=== PATIENT | male | born 1950 | race Caucasian/White ===

== ENCOUNTER 2023-03-20 06:50 | Day surgery (SDC) | payer OTHER ==
[2023-03-20] MEDS ORDERED: LIDOCAINE 1% MPF 5 ML VIAL ONE (07:13)
[2023-03-20] MEDS ORDERED: Ringers Lactate 1,000 ML IV ONE (07:13)
[2023-03-20] MEDS ORDERED: propofoL 200 MG/20 ML VIAL IV ONE (07:13)
[2023-03-20 09:06] VITALS: BP 131/75; TEMP 97; O2SAT 100
== END 2023-03-20 09:05 | disposition home or self-care (01) ==
LOC: OR 06:50
PROVIDERS: ATTEND Surgery
PROC: 0DJD8ZZ Inspection of Lower Intestinal Tract, Via Natural or Artificial Opening Endoscopic (ICD-10-PCS; principal; 2023-03-20 08:00)
DX: Z12.11 Encounter for screening for malignant neoplasm of colon (principal); K57.30 Diverticulosis of large intestine without perforation or abscess without bleeding; K64.8 Other hemorrhoids
CPT/HCPCS: J2704; J2001; J7120; G0121

== ENCOUNTER 2025-06-01 13:15 | Day surgery (SDC) | payer OTHER ==
[2025-05-27 11:06] LABS: Absolute Lymphocytes (CBC) 2.4 K/uL (0.7-4.9); Hematocrit 41.3 % (39.6-49.0); Hemoglobin 14.1 g/dL (13.6-17.9); MCH 31.4 pg (27.0-35.0); MCHC 34.2 g/dL (32.0-36.0); MCV 91.6 fL (80-100); MPV 8.9 fL (7.6-11.3); Nucleated RBC Absolute Count 0.0 (0-0); Nucleated Red Blood Cells % 0.0 % (0-0); RBC Red Blood Cell Count 4.51 M/uL (4.33-5.43); White Blood Count 8.70 thou/uL (4.3-10.9)
[2025-05-27 11:19] LABS: PT Prothrombin Time 14.8 SECONDS (10-13.0); PTT, Activated Partial Thromb 31.5 SECONDS (27.2-37.4); Protime INR 1.32
[2025-05-27 11:20] LABS: Anion Gap 9.3 mEq/L (5.0-15.0); BUN Blood Urea Nitrogen 19.0 mg/dL (7-18); Glucose Level 94.0 mg/dL (74-106); Potassium 4.3 mEq/L (3.5-5.1)
--- NOTE | 2025-05-27 11:36 | RAD REPORT ---
Procedure: Chest Pa And Lat (2 Views) HISTORY: Preop for cardiac catheterization COMPARISON: 2009 FINDINGS: The lungs appear clear of acute infiltrate. Calcified granuloma right lung. Post surgical changes involve the chest. No significant pleural effusion noted. The heart is normal size. IMPRESSION: No acute abnormality is displayed.
[2025-06-01] MEDS ORDERED: NA CHLORIDE 0.9% 500 ML ONE (13:43)
[2025-06-01] MEDS ORDERED: NALOXONE 0.4 MG/ML VIAL ONE (14:57)
[2025-06-01] MEDS ORDERED: ATROPINE SULF 1 MG/10 ML SYR IV ONE (14:57)
[2025-06-01] MEDS ORDERED: HEPA 1000U/500MLS 2,000 UNIT/1,000 ML BAG IV ONE (14:57)
[2025-06-01] MEDS ORDERED: LIDOCAINE 1% 20 ML MDV ONE (14:57)
[2025-06-01] MEDS ORDERED: FLUMAZENIL 0.1 MG/ML (5 mL VIAL) IV ONE (14:57)
[2025-06-01] MEDS ORDERED: MIDAZOLAM HCL 2 MG/2 ML INJ ONE (15:04)
[2025-06-01] MEDS ORDERED: FENTANYL CITR 100 MCG/2 ML ONE (15:04)
[2025-06-01 17:50] VITALS: O2SAT 100
[2025-06-01 17:52] VITALS: BP 136/80
--- NOTE | 2025-06-02 03:34 | OP ---
Date of Procedure: 06/01/2025 Surgeon: SCARLETT TAN Procedure Performed: Selective carotid angiogram bilaterally. Indication: Carotid stenosis. Access: Right common femoral artery 5-Turkish, closed with Mynx closure device. Complications: None. Bleeding: Less than 2 mL. Total Sedation Time: 1 hour. Description Of Procedure: After risks, benefits, and alternatives were explained, the patient agreed to procedure and signed informed consent. The patient was brought into cardiac catheterization labo ratory, prepped and draped in sterile fashion. Then, I accessed right common femoral artery using mi cropuncture kit, ultrasound guidance, fluoroscopy, placed 5-Turkish Oberon sheath and took 4-Turkish 3DRC catheter into the aortic root, engaged the right common carotid, took standard views, and then l eft common carotid, took standard views, and then removed the catheter and the sheath, placed a 5-Ace uth Mynx closure device for closure with good hemostasis. Findings: 1. Right common carotid is patent. The right internal carotid has 60% to 70% stenosis. 2. Left common carotid is normal and the left internal carotid has only 20% stenosis. Conclusion: Moderate to severe carotid stenosis, especially on the right. Recommendation: Medical management. Repeat ultrasound in 6 months. SR/MODL Voice ID: [id number] Report ID: [id number]
== END 2025-06-01 17:50 | disposition home or self-care (01) ==
LOC: CCL 13:15
PROVIDERS: ATTEND Internal Medicine
DX: I65.23 Occlusion and stenosis of bilateral carotid arteries (principal); I25.10 Atherosclerotic heart disease of native coronary artery without angina pectoris; I10 Essential (primary) hypertension; E78.2 Mixed hyperlipidemia; Z79.82 Long term (current) use of aspirin; Z79.899 Other long term (current) drug therapy
CPT/HCPCS: 93005; 85025; 80048; 36415; 85610; 85730; 71046; 36222; 76937; C1893; J2003; J2250; J3010; J1644; J7040; C1760; J0461; J2310